=== PATIENT | female | born 1960 | race Caucasian/White ===

== ENCOUNTER 2019-07-25 16:07 | Outpatient (CLI) | payer OTHER, SELFPAY ==
--- NOTE | 2019-08-10 09:03 | ONC FU_ITS ---
Dr. Granados Patient Follow-Up Note Patient: Adlofo Crawford Unit #: [id number]: 1960 Dicatated By: Kevin Granados M.D.Date of Visit:Jul 25, 2019 Onc Med Follow-up/Prog Note Chief Complaint: Breast cancer. History of Present Illness: This is a 58 year-old woman with grade 2 infiltrating ductal carcinoma of the left breast, stage IA (T1c, N0, M0), ER/UT positive and HER-2/keesha negative. She had presented in December 2014 with an abnormal screening mammogram, reportedly showing architectural distortion in the upper outer left breast. She was referred to Dr. Ester Duenas. She underwent excisional biopsy under needle localization on 01/28/2015. Pathology showed grade 2 infiltrating ductal carcinoma measuring at least 1.3 cm. The tumor was approximately 1 mm from the surgical margin. There was no lymphovascular involvement identified. It did show a component of grade 2 in situ cancer, but the extent was not stated in the report. The tumor was ER positive at 90% and UT positive at 80%. It was negative for overexpression of HER-2/keesha by FISH, amplification ratio 1.1. She underwent left axillary sentinel lymph node biopsy on 02/01/2015. One sentinel lymph node and one additional axillary lymph node were both negative for malignancy. An Oncotype DX assay was favorable with a recurrence score of 12. This correlated with a 10-year recurrence risk of 8% with adjuvant hormonal therapy alone. As such, I did not recommend adjuvant chemotherapy. She was given radiation to the left breast, which she completed on 05/17/2015 to a total dose of 6600 cGy. She tolerated the treatment very well. She started adjuvant hormonal therapy with tamoxifen in June 2015, as she was premenopausal at diagnosis. Her other medical illnesses have been limited to hypertension and allergic rhinitis. Her DEXA scan from 02/18/2018 showed mild osteopenia with T score -1.5 in the right femur and -1.3 in the left femur. She is a nonsmoker. INTERIM HISTORY: She was seen for a scheduled visit on 06/29/2018. At that time her liver enzymes were noted to be slightly elevated. She appeared stable clinically, and she continued tamoxifen 20 mg daily. A repeat CMP in September showed similar findings with slightly elevated liver enzymes. At that time I also checked FSH and estradiol levels, and they were definitely in postmenopausal range at 56.1 mIUI/mL and < 15 pg/mL respectively. As of her follow-up visit on 01/02/2019 hormonal therapy was transitioned to exemestane 25 mg daily. She actually started taking it in February 2019. She is seen for a follow-up visit. She has been feeling good generally. She does have some achiness in her joints, but she says it is tolerable. She also continues to have hot flashes and sweating. Her energy level, though, is good, and she has normal activity. ECOG score is 0. Her appetite is good. Her weight is down a few pounds. She does not complain of shortness of breath, cough, or chest pain. She has no GI or complaints. She does not complain of headache or dizziness, and she has no focal neurologic symptoms. She has had some restless leg symptoms, which are actually more prominent in the upper than lower extremities. In the past she had tried a low dosage of ropinirole, but without significant benefit. Medications: Azelastine-Fluticasone 2 (137-50 mcg/act) Suspension Nasal daily, B-6 1 (100 mg) Tablet Oral daily, bone up 2 Capsule daily, Exemestane 1 Tablet (of 25 mg) Oral daily, Glucosamine HCl 1 Tablet (of 1000 mg) Oral daily, Hydrochlorothiazide 1 (25 mg) Tablet Oral daily, Lisinopril 1 (20 mg) Tablet Oral daily PRN, Meloxicam 1 (5 mg) Capsule Oral PRN, Metoprolol Tartrate 1 (50 mg) Tablet Oral daily, Multivitamins 1 Capsule Oral daily, ZyrTEC Allergy 1 (10 mg) Capsule Oral daily Allergies: Penicillins Review of Systems: Constitutional - Her energy is good. She has normal activity. Her appetite is good and her weight is down a few pounds. No fever or chills. She has hot flashes and sweating. ECOG score is 0, ENMT - Her sinuses are better. No mouth sores. No sore throat or difficulty swallowing, Hematologic/Lymphatic - No abnormal bruising or bleeding, Respiratory - No shortness of breath. No cough. No pleuritic pain or hemoptysis, Cardiovascular - No angina pain. No palpitations, Gastrointestinal - No nausea or vomiting. No heartburn or acid reflux. No diarrhea or constipation. No blood in the stool or black stools, Genitourinary (F) - No dysuria or hematuria. No urinary frequency. No urgency or incontinence, Musculoskeletal - She continues to have joint pain, but it is tolerable, Integumentary - No skin complications, Neurologic - No headache or dizziness. No numbness/paresthesias or other focal neurologic symptoms. She does report having restless leg symptoms at night, to some extent in the legs but actually moreso in her arms, Psychiatric - No anxiety or depression. She does not sleep well at night. Vital Signs: Performed on Jul 25, 2019 16:16 Height - 66.00 in Weight - 178.2 lbs (LOW) BSA - 1.90 sq.m BMI - 28.76 Temperature - 97.6 F (LOW) Pulse - 88 /min Respiration - 16 /min BP - 136/78 mm(hg) O2 Sat - 95 % (LOW) Pain - 0 Physical Examination: Constitutional - She looks good generally, Eyes - Sclerae nonicteric. Conjunctivae clear, ENMT - No lesions noted in the oral cavity, Hematologic/Lymphatic - No cervical, clavicular, or axillary adenopathy, Respiratory - Lungs are clear with good air movement bilaterally, Cardiovascular - Heart rhythm is regular. There is no murmur, gallop, or rub noted, Abdomen - Soft. Liver and spleen are not enlarged. There is no abdominal mass or ascites noted and no inguinal adenopathy, Extremities - No edema, Neurologic - No focal neurologic deficits noted. Lab/Imaging: Test performed on Jul 19, 2019 11:07 Glucose 98 mg/dL BUN 17 mg/dL Creatinine 1.02 mg/dL Cr Clearance (Est) 80.26 mL/min Sodium 140 mmol/L Potassium 4.1 mmol/L Chloride 101 mmol/L CO2 31 mmol/L Calcium 10.7 mg/dL Protein, Total 7.5 g/dL Albumin 5 g/dL Globulin 2.5 g/dL A/G Ratio 2.0 Absolute Value Bilirubin, Total 0.4 mg/dL Alkaline Phosphatase 99 IU/L AST (SGOT) 39 IU/L ALT (SGPT) 52 IU/L WBC 4.3 10^9/L RBC 4.64 10^12/L HGB 14.6 g/dL HCT 44.4 % MCV 95.7 fl MCH 31.5 pg MCHC 32.9 g/dL RDW 12.3 % Platelet Count 332 10^9/L Neutrophils (Gran) 2.1973 10^9/L Lymphocytes 1.6211 10^9/L Monocytes 0.344 10^9/L Eosinophils 0.129 10^9/L Basophils 0.0086 10^9/L Impression: 1. The patient has grade 2 infiltrating ductal carcinoma of the left breast, stage IA (T1c, N0, M0), ER/UT positive and HER-2/keesha negative. Her initial treatment included excisional biopsy followed by left axillary sentinel lymph node biopsy. Her Oncotype DX was low risk with a recurrence score 12. As such I did not recommend adjuvant chemotherapy. 2. She was given radiation to the left breast, which she completed on 05/17/2015 to a total dose of 6600 cGy. She tolerated the treatment well. 3. She began adjuvant hormonal therapy with tamoxifen in June 2015. She was premenopausal at diagnosis. Her other medical illnesses include: 4. Hypertension. 5. Allergic rhinitis. She developed mildly elevated liver enzymes on the tamoxifen, and she also had been having some mild joint pain. Her FSH and estradiol levels in September 2018 were definitely in postmenopausal range. As of her follow-up visit in December 2018 her adjuvant hormonal therapy was transitioned to exemestane 25 mg daily. She actually started taking it in February 2019. Since then her clinical status has basically remained stable. She continues to have some hot flashes and she continues to have joint pain, but it is tolerable. Her liver enzymes remain slightly elevated. There has been no evidence clinically of recurrence of her breast cancer. Plan: She continues adjuvant hormonal therapy with exemestane 25 mg daily. I will see her for a follow-up visit in 6 months. Signed By: Kevin Granados M.D. <<Signature on File>>
== END 2019-07-25 16:08 | disposition home or self-care (01) ==
LOC: ONCMED 16:07
PROVIDERS: Family Provider Family Medicine; PCP Family Medicine; Visit Provider Internal Medicine Medical Oncology
DX: C50.412 Malignant neoplasm of upper-outer quadrant of left female breast (principal); Z17.0 Estrogen receptor positive status [ER+]; I10 Essential (primary) hypertension; M85.852 Other specified disorders of bone density and structure, left thigh; M85.851 Other specified disorders of bone density and structure, right thigh; Z78.0 Asymptomatic menopausal state; Z79.811 Long term (current) use of aromatase inhibitors; Z79.899 Other long term (current) drug therapy; Z92.3 Personal history of irradiation
CPT/HCPCS: 99214

== ENCOUNTER 2019-11-03 13:57 | Outpatient (CLI) | payer OTHER, SELFPAY ==
--- NOTE | 2019-11-03 14:38 | XR_ITS ---
WS: [id number] DEXA (DUAL ENERGY X-RAY ABSORPTIOMETRY) Bone mineral density was performed using a [employer] machine. HISTORY: Malignancy NEOPLASM OF BREAST COMPARISON: None available. Lumbar spine : prior hardware placement. Total hip BMD: Left: 0.880 g/cm2. T score: -1.0 Z score: -0.5 Right: 0.849 g/cm2. T score: -1.3 Z score: -0.7 10 year probability of a major osteoporotic fracture is 8%. XR/XR DEXA axial skeleton* 59929 IMPRESSION: OSTEOPENIA based upon the WHO classification for females.
== END 2019-11-03 13:58 | disposition home or self-care (01) ==
LOC: RADWPI 14:04
PROVIDERS: Family Provider Family Medicine; PCP Family Medicine; Visit Provider Internal Medicine Medical Oncology
DX: C50.919 Malignant neoplasm of unspecified site of unspecified female breast (principal); M85.89 Other specified disorders of bone density and structure, multiple sites
CPT/HCPCS: 77080

== ENCOUNTER → 2019-11-16 11:08 | Outpatient (BNVA) | payer OTHER, SELFPAY | PROVIDERS: Family Provider Family Medicine; PCP Family Medicine; Visit Provider Family Medicine | DX: I10 Essential (primary) hypertension (principal); M65.4 Radial styloid tenosynovitis [de Quervain] | CPT/HCPCS: 80053; 80061; 82044; 85025 ==

== ENCOUNTER 2019-11-27 16:16 | Outpatient (CLI) | payer OTHER, SELFPAY | END 2019-11-27 16:17 | disposition home or self-care (01) | LOC: SPT 16:17 | PROVIDERS: Family Provider Family Medicine; PCP Family Medicine; Visit Provider Orthopaedic Surgery | DX: Z46.89 Encounter for fitting and adjustment of other specified devices (principal); M65.4 Radial styloid tenosynovitis [de Quervain] | CPT/HCPCS: 97760; L3809 ==

== ENCOUNTER 2020-01-23 15:19 | Outpatient (CLI) | payer OTHER, SELFPAY ==
--- NOTE | 2020-01-23 19:50 | ONC FU_ITS ---
Dr. Granados Patient Follow-Up Note Patient: Adolfo Crawford Unit #: [id number]: 1960 Dicatated By: Kevin Granados M.D.Date of Visit:Jan 23, 2020 Onc Med Follow-up/Prog Note Chief Complaint: Breast cancer. History of Present Illness: This is a 59 year-old woman with grade 2 infiltrating ductal carcinoma of the left breast, stage IA (T1c, N0, M0), ER/IA positive and HER-2/keesha negative. She had presented in December 2014 with an abnormal screening mammogram, reportedly showing architectural distortion in the upper outer left breast. She was referred to Dr. Ester Duenas. She underwent excisional biopsy under needle localization on 01/28/2015. Pathology showed grade 2 infiltrating ductal carcinoma measuring at least 1.3 cm. The tumor was approximately 1 mm from the surgical margin. There was no lymphovascular involvement identified. It did show a component of grade 2 in situ cancer, but the extent was not stated in the report. The tumor was ER positive at 90% and IA positive at 80%. It was negative for overexpression of HER-2/keesha by FISH, amplification ratio 1.1. She underwent left axillary sentinel lymph node biopsy on 02/01/2015. One sentinel lymph node and one additional axillary lymph node were both negative for malignancy. An Oncotype DX assay was favorable with a recurrence score of 12. This correlated with a 10-year recurrence risk of 8% with adjuvant hormonal therapy alone. As such, I did not recommend adjuvant chemotherapy. She was given radiation to the left breast, which she completed on 05/17/2015 to a total dose of 6600 cGy. She tolerated the treatment very well. She started adjuvant hormonal therapy with tamoxifen in June 2015, as she was premenopausal at diagnosis. Her other medical illnesses have been limited to hypertension and allergic rhinitis. Her DEXA scan from 02/18/2018 showed mild osteopenia with T score -1.5 in the right femur and -1.3 in the left femur. She is a nonsmoker. INTERIM HISTORY: She was seen for a scheduled visit on 06/29/2018. At that time her liver enzymes were noted to be slightly elevated. She appeared stable clinically, and she continued tamoxifen 20 mg daily. A repeat CMP in September showed similar findings with slightly elevated liver enzymes. At that time I also checked FSH and estradiol levels, and they were definitely in postmenopausal range at 56.1 mIUI/mL and < 15 pg/mL respectively. As of her follow-up visit on 01/02/2019 hormonal therapy was transitioned to exemestane 25 mg daily. She actually started taking it in February 2019. She is seen for a follow-up visit. She has been feeling good generally. She has good energy and activity tolerance. ECOG score 0. Her appetite is good. She has not had fever. She does have hot flashes and sweating, rated as moderately severe. She has no shortness of breath, cough, or chest pain. She was having nausea with meloxicam, but that has resolved since she stopped taking the medication. She has no other GI or complaints. She is still having pain in both arms, but that seems to be associated primarily with movement/use of her thumbs. She has no other joint or bone pain, but recently she has noticed some swelling around her left knee. She has been having fewer headaches. She has no focal neurologic symptoms. Medications: Azelastine-Fluticasone 2 (137-50 mcg/act) Suspension Nasal daily, B-6 1 (100 mg) Tablet Oral daily, bone up 6 Capsule daily, Exemestane 1 Tablet (of 25 mg) Oral daily, Glucosamine HCl 1 Tablet (of 1000 mg) Oral daily, Hydrochlorothiazide 1 (25 mg) Tablet Oral daily, Lisinopril 1 (20 mg) Tablet Oral daily PRN, Meloxicam 1 (5 mg) Capsule Oral PRN, Metoprolol Tartrate 1 (50 mg) Tablet Oral daily, Multivitamins 1 Capsule Oral daily, ZyrTEC Allergy 1 (10 mg) Capsule Oral daily Allergies: Penicillins Review of Systems: Constitutional - She has good energy and activity tolerance. Appetite is good and weight is stable. No fever. She still has hot flashes/sweating, moderately severe. ECOG score is 0, ENMT - No sinus congestion/drainage. No mouth sores. No sore throat or difficulty swallowing, Hematologic/Lymphatic - No abnormal bruising or bleeding, Respiratory - No shortness of breath. No cough. No pleuritic pain or hemoptysis, Cardiovascular - No angina pain. No palpitations, Gastrointestinal - She had nausea when she was taking meloxicam, but that resolved when she stopped the medication. No heartburn or acid reflux. No diarrhea or constipation. No blood in the stool or black stools, Genitourinary (F) - No dysuria or hematuria. No urinary frequency. No urgency or incontinence, Musculoskeletal - She still has some pain in both arms, which seems to to be associated mainly with movement/use of her thumbs. She has no other joint or bone pain. She recently has become aware of some swelling in the area of her left knee, Integumentary - No skin rash., Neurologic - She has been having fewer headaches. No dizziness. No numbness or tingling. No other focal neurologic symptoms, Psychiatric - No anxiety or depression. No insomnia. Vital Signs: Performed on Jan 23, 2020 15:31 Height - 66.00 in Weight - 170.0 lbs (LOW) BSA - 1.87 sq.m BMI - 27.44 Temperature - 97.8 F (LOW) Pulse - 90 /min Respiration - 18 /min BP - 115/64 mm(hg) O2 Sat - 95 % (LOW) Pain - 0 Physical Examination: Constitutional - She looks good generally, Eyes - Sclerae nonicteric. Conjunctivae clear, ENMT - No lesions noted in the oral cavity, Hematologic/Lymphatic - No cervical, clavicular, or axillary adenopathy, Respiratory - Lungs are clear with good air movement bilaterally, Cardiovascular - Heart rhythm is regular. There is no murmur, gallop, or rub noted, Abdomen - Soft. Liver and spleen are not enlarged. There is no abdominal mass or ascites noted and no inguinal adenopathy, Extremities - No edema. There is some fluid which appears to be associated with the prepatellar bursa on the left side, Neurologic - No focal neurologic deficits noted. Impression: 1. The patient has grade 2 infiltrating ductal carcinoma of the left breast, stage IA (T1c, N0, M0), ER/IA positive and HER-2/keesha negative. Her initial treatment included excisional biopsy followed by left axillary sentinel lymph node biopsy. Her Oncotype DX was low risk with a recurrence score 12. As such I did not recommend adjuvant chemotherapy. 2. She was given radiation to the left breast, which she completed on 05/17/2015 to a total dose of 6600 cGy. She tolerated the treatment well. 3. She began adjuvant hormonal therapy with tamoxifen in June 2015. She was premenopausal at diagnosis. Her other medical illnesses include: 4. Hypertension. 5. Allergic rhinitis. She developed mildly elevated liver enzymes on the tamoxifen, and she also had been having some mild joint pain. Her FSH and estradiol levels in September 2018 were definitely in postmenopausal range. As of her follow-up visit in December 2018 her adjuvant hormonal therapy was transitioned to exemestane 25 mg daily. She actually started taking it in February 2019. Since then her clinical status has basically remained stable. She has continued to have hot flashes and she has had some musculolskeletal pain, but side effects remain tolerable. Overall she appears to be doing well clinically with no evidence of recurrence of her breast cancer, Plan: She continues adjuvant hormonal therapy with exemestane 25 mg daily. She will be scheduled for a follow-up visit in 6 months, at which point she will have completed 5 years of adjuvant hormonal therapy. Signed By: Kevin Granados M.D. <<Signature on File>>
== END 2020-01-23 15:20 | disposition home or self-care (01) ==
LOC: ONCMED 15:22
PROVIDERS: PCP Family Medicine; Visit Provider Internal Medicine Medical Oncology
DX: C50.412 Malignant neoplasm of upper-outer quadrant of left female breast (principal); Z17.0 Estrogen receptor positive status [ER+]; I10 Essential (primary) hypertension; J30.9 Allergic rhinitis, unspecified; Z92.3 Personal history of irradiation; Z79.818 Long term (current) use of other agents affecting estrogen receptors and estrogen levels
CPT/HCPCS: 99214

== ENCOUNTER → 2020-04-04 15:42 | Outpatient (BNVA) | payer OTHER, SELFPAY | PROVIDERS: PCP Family Medicine; Visit Provider Family Medicine | DX: Z11.59 Encounter for screening for other viral diseases (principal) | CPT/HCPCS: 87635 ==

== ENCOUNTER → 2020-06-28 10:15 | Outpatient (BNVA) | payer OTHER, SELFPAY | PROVIDERS: PCP Family Medicine; Visit Provider Obstetrics & Gynecology | DX: Z12.4 Encounter for screening for malignant neoplasm of cervix (principal) | CPT/HCPCS: 88175 ==

== ENCOUNTER → 2020-07-08 00:01 | Outpatient (BNVA) | payer OTHER, SELFPAY | PROVIDERS: PCP Family Medicine; Visit Provider Obstetrics & Gynecology | DX: Z01.419 Encounter for gynecological examination (general) (routine) without abnormal findings (principal); Z53.20 Procedure and treatment not carried out because of patient's decision for unspecified reasons | CPT/HCPCS: 82270 ==

== ENCOUNTER 2020-08-06 14:54 | Outpatient (CLI) | payer OTHER, SELFPAY ==
--- NOTE | 2020-08-10 11:50 | ONC FU_ITS ---
Dr. Granados Patient Follow-Up Note Patient: Adolfo Crawford Unit #: [id number]: 1960 Dicatated By: Kevin Granados M.D.Date of Visit:Aug 06, 2020 Onc Med Follow-up/Prog Note Chief Complaint: Breast cancer. History of Present Illness: This is a 59 year-old woman with grade 2 infiltrating ductal carcinoma of the left breast, stage IA (T1c, N0, M0), ER/[place] positive and HER-2/keesha negative. She had presented in December 2014 with an abnormal screening mammogram, reportedly showing architectural distortion in the upper outer left breast. She was referred to Dr. Ester Duenas. She underwent excisional biopsy under needle localization on 01/28/2015. Pathology showed grade 2 infiltrating ductal carcinoma measuring at least 1.3 cm. The tumor was approximately 1 mm from the surgical margin. There was no lymphovascular involvement identified. It did show a component of grade 2 in situ cancer, but the extent was not stated in the report. The tumor was ER positive at 90% and W[place] positive at 80%. It was negative for overexpression of HER-2/keesha by FISH, amplification ratio 1.1. She underwent left axillary sentinel lymph node biopsy on 02/01/2015. One sentinel lymph node and one additional axillary lymph node were both negative for malignancy. An Oncotype DX assay was favorable with a recurrence score of 12. This correlated with a 10-year recurrence risk of 8% with adjuvant hormonal therapy alone. As such, I did not recommend adjuvant chemotherapy. She was given radiation to the left breast, which she completed on 05/17/2015 to a total dose of 6600 cGy. She tolerated the treatment very well. She started adjuvant hormonal therapy with tamoxifen in June 2015, as she was premenopausal at diagnosis. Her other medical illnesses have been limited to hypertension and allergic rhinitis. Her DEXA scan from 02/18/2018 showed mild osteopenia with T score -1.5 in the right femur and -1.3 in the left femur. She is a nonsmoker. INTERIM HISTORY: She was seen for a scheduled visit on 06/29/2018. At that time her liver enzymes were noted to be slightly elevated. She appeared stable clinically, and she continued tamoxifen 20 mg daily. A repeat CMP in September showed similar findings with slightly elevated liver enzymes. At that time I also checked FSH and estradiol levels, and they were definitely in postmenopausal range at 56.1 mIUI/mL and < 15 pg/mL respectively. As of her follow-up visit on 01/02/2019 hormonal therapy was transitioned to exemestane 25 mg daily. She actually started taking it in February 2019. She is seen for a follow-up visit. She has been feeling good generally. She has good energy and activity tolerance. ECOG score is 0. Her appetite is good. She has not had fever. She does have some hot flashes, but much less now. She has some allergy related sinus symptoms. She has no shortness of breath, cough, or chest pain. She has no GI or complaints. She has a little bit of musculoskeletal pain if she works a lot, and it goes away with rest. She has no other joint or bone pain. She does not complain of headache or dizziness. She has no focal neurologic symptoms. Medications: Azelastine-Fluticasone 2 (137-50 mcg/act) Suspension Nasal daily, B-6 1 (100 mg) Tablet Oral daily, bone up 6 Capsule daily, Exemestane 1 Tablet (of 25 mg) Oral daily, Glucosamine HCl 1 Tablet (of 1000 mg) Oral daily, Hydrochlorothiazide 1 (25 mg) Tablet Oral daily, Lisinopril 1 (20 mg) Tablet Oral daily PRN, Meloxicam 1 (5 mg) Capsule Oral PRN, Metoprolol Tartrate 1 (50 mg) Tablet Oral daily, Multivitamins 1 Capsule Oral daily, ZyrTEC Allergy 1 (10 mg) Capsule Oral daily Allergies: Penicillins Vital Signs: Performed on Aug 06, 2020 15:11 Height - 66.00 in Weight - 166.8 lbs (LOW) BSA - 1.85 sq.m BMI - 26.92 Temperature - 98.2 F (LOW) Pulse - 72 /min Respiration - 18 /min BP - 114/69 mm(hg) O2 Sat - 97 % Pain - 0 Fatigue - 0 Physical Examination: Constitutional - She looks good generally, Eyes - Sclerae nonicteric. Conjunctivae clear, ENMT - No lesions noted in the oral cavity, Hematologic/Lymphatic - No cervical, clavicular, or axillary adenopathy, Respiratory - Lungs are clear with good air movement bilaterally, Cardiovascular - Heart rhythm is regular. There is no murmur, gallop, or rub noted, Abdomen - Soft. Liver and spleen are not enlarged. There is no abdominal mass or ascites noted and no inguinal adenopathy, Extremities - No edema, Neurologic - No focal neurologic deficits noted. Problem List: 1. Grade 2 infiltrating ductal carcinoma of the left breast, stage IA (T1c, N0, M0), ER/[place] positive and HER-2/keesha negative. 2. Hypertension. 3. Allergic rhinitis. Problems Addressed with this Encounter and Plan: Patient with grade 2 infiltrating ductal carcinoma of the left breast, stage IA (T1c, N0, M0), ER/[place] positive and HER-2/keesha negative. Her initial treatment included excisional biopsy followed by left axillary sentinel lymph node biopsy. Her Oncotype DX was low risk with a recurrence score 12. As such I did not recommend adjuvant chemotherapy. She was given radiation to the left breast, which she completed on 05/17/2015 to a total dose of 6600 cGy. She began adjuvant hormonal therapy with tamoxifen in June 2015. She was premenopausal at diagnosis. She developed mildly elevated liver enzymes on the tamoxifen, and she also had been having some mild joint pain. Her FSH and estradiol levels in September 2018 were definitely in postmenopausal range. Her adjuvant hormonal therapy was then transitioned to exemestane 25 mg daily, beginning in February 2019. During follow-up she has continued treatment with exemestane 25 mg daily. She has tolerated it well. Thus far there has been no evidence of recurrence of the breast cancer. She has now close to completion of 5 years of adjuvant hormonal therapy, which included tamoxifen for 3 years and an aromatase inhibitor for 2 years. Options now would be to continue the exemestane for a total of 5 years of AI therapy or just to just stop after 5 years of treatment. I also discussed the option of having further evaluation with a breast cancer index study. However, given the fact that she had low risk disease, she prefers to stop treatment as a precaution, we will have her continue the exemestane until February, so that she does have a full 2 years of AI treatment. She will then continue her regular follow-up with Dr. Nascimento, which does need to include yearly diagnostic mammograms. I will see her again only as needed. Signed By: Kevin Granados M.D. <<Signature on File>>
== END 2020-08-06 14:55 | disposition home or self-care (01) ==
PROVIDERS: PCP Family Medicine; Visit Provider Internal Medicine Medical Oncology
DX: C50.412 Malignant neoplasm of upper-outer quadrant of left female breast (principal); Z17.0 Estrogen receptor positive status [ER+]; Z79.811 Long term (current) use of aromatase inhibitors
CPT/HCPCS: 99214

== ENCOUNTER → 2020-11-04 14:15 | Outpatient (BNVA) | payer BC, SELFPAY | PROVIDERS: PCP Family Medicine; Visit Provider Nurse Practitioner | DX: J02.9 Acute pharyngitis, unspecified (principal) | CPT/HCPCS: 87071; 87880 ==

== ENCOUNTER → 2020-12-26 09:59 | Outpatient (BNVA) | payer BC, SELFPAY | PROVIDERS: PCP Family Medicine; Visit Provider Family Medicine | DX: I10 Essential (primary) hypertension (principal); M19.90 Unspecified osteoarthritis, unspecified site | CPT/HCPCS: 80053; 80061; 82043; 85025 ==

== ENCOUNTER → 2021-06-26 09:15 | Outpatient (BNVA) | payer BC, SELFPAY | PROVIDERS: PCP Family Medicine; Visit Provider Family Medicine | DX: I10 Essential (primary) hypertension (principal) | CPT/HCPCS: 80053 ==

== ENCOUNTER → 2021-12-25 09:01 | Outpatient (BNVA) | payer BC, SELFPAY | PROVIDERS: PCP Family Medicine; Visit Provider Family Medicine | DX: I10 Essential (primary) hypertension (principal); M15.9 Polyosteoarthritis, unspecified; C50.412 Malignant neoplasm of upper-outer quadrant of left female breast; Z17.0 Estrogen receptor positive status [ER+]; Z12.11 Encounter for screening for malignant neoplasm of colon | CPT/HCPCS: 80053; 80061; 82043; 85025 ==

== ENCOUNTER 2022-12-28 09:32 | Outpatient (CLI) | payer BC, SELFPAY ==
--- NOTE | 2022-12-28 09:47 | XRR_ITS ---
PROCEDURE INFORMATION: Exam: XR Cervical Spine Exam date and time: 12/28/2022 9:52 AM Age: 62 years old Clinical indication: Patient HX: Patient has had ache neck pain for 3-4 weeks, HX of breast cancer TECHNIQUE: Imaging protocol: Radiologic exam of the cervical spine. Views: 2 or 3 views. COMPARISON: No relevant prior studies available. FINDINGS: Bones/joints: No fracture or other acute abnormality. Alignment is normal. There is mild C4 through C6 disc space narrowing with associated small marginal osteophytes. Remaining disc space levels are normal. There is probable mild facet arthropathy. Soft tissues: Unremarkable. XR/XR cervical spine 3V* [id number] IMPRESSION: Nonacute findings.
== END 2022-12-28 09:33 | disposition home or self-care (01) ==
PROVIDERS: PCP Family Medicine; Visit Provider Family Medicine
DX: M54.2 Cervicalgia (principal); Z85.3 Personal history of malignant neoplasm of breast; R43.0 Anosmia; I10 Essential (primary) hypertension
CPT/HCPCS: 72040; 80053; 80061; 82043; 85025; 85651; 86140

== ENCOUNTER 2023-01-07 13:54 | Outpatient (CLI) | payer BC, SELFPAY ==
[2023-01-07] MEDS: iohexol 350 mg/mL 500 mL Btl (per mL) IV (13:59)
--- NOTE | 2023-01-07 14:37 | CT_ITS ---
WS: [id number] CT SINUSES TECHNIQUE: Contrast-enhanced CT of the paranasal sinuses with coronal and sagittal reformatted images . CLINICAL INFORMATION: loss of smell COMPARISON: None. DLP: [id number] [facility] use at least one of these dose optimization techniques: automated e xposure control; mA and/or kV adjustment per patient size (includes targeted exams where dose is matc hed to clinical indication); or iterative reconstruction. FINDINGS: Minimal LEFT to RIGHT nasal deviation with a rightward directed spur. Paranasal sinuses are well aera ilia. Normal posterior nasopharynx. Normal parapharyngeal fat. Mastoid air cells are well aerated. Frontal sinuses are well aerated. Normal frontal ethmoidal recess. Normal ethmoid air cells and maxil rosio sinuses. Sphenoid sinuses are patent. Sphenoid ostia are patent. Partially visualized intracrani al contents appear normal for age. Narrowing of the ostiomeatal units bilaterally. Flattening of the LEFT mandibular condyle. CT/CT sinus w con [id number] IMPRESSION: 1. Minimal LEFT to RIGHT nasal deviation with a rightward directed spur 2. Paranasal sinuses are well aerated. Mild narrowing of the ostiomeatal units bilaterally. 3. No abnormal enhancement. 4. Mastoid air cells are well aerated. Normal posterior nasopharynx.
== END 2023-01-07 13:55 | disposition home or self-care (01) ==
PROVIDERS: PCP Family Medicine; Visit Provider Family Medicine
DX: R43.0 Anosmia (principal); J34.2 Deviated nasal septum; J34.89 Other specified disorders of nose and nasal sinuses
CPT/HCPCS: 70487; Q9967

== ENCOUNTER → 2023-10-27 10:18 | Outpatient (BNVA) | payer BC, SELFPAY | PROVIDERS: PCP Family Medicine; Visit Provider Obstetrics & Gynecology | DX: N81.4 Uterovaginal prolapse, unspecified (principal) | CPT/HCPCS: 76830 ==

== ENCOUNTER → 2024-08-29 12:04 | Outpatient (BNVA) | payer BC, SELFPAY | PROVIDERS: PCP Family Medicine; Visit Provider Registered Nurse Neonatal Intensive Care | DX: J02.9 Acute pharyngitis, unspecified (principal) | CPT/HCPCS: 87880 ==

== ENCOUNTER → 2024-09-04 10:33 | Outpatient (BNVA) | payer BC, SELFPAY | PROVIDERS: PCP Family Medicine; Visit Provider Family Medicine | DX: I10 Essential (primary) hypertension (principal) | CPT/HCPCS: 80053; 80061; 82043; 84443; 85025 ==